=== PATIENT | female | born 1945 | race Caucasian/White ===

== ENCOUNTER 2017-12-18 22:40 | Emergency (ER) | payer OTHER ==
[~2017-12-18] VITALS: Ht 154.9 cm; Wt 72.6 kg
[2017-12-18] MEDS ORDERED: DILTIAZEM HCL 25 MG/5 ML VIAL IV ONE (23:30)
[2017-12-18 23:37] LABS: Basophils # (auto) 0.1 uL; Basophils % (auto) 0.5 % (0.0-2.0); Eosinophils # (auto) 0.2 uL; Eosinophils % (auto) 1.9 % (0.0-7.0); Hematocrit 44.1 % (36.0-46.0); Hemoglobin 15.1 g/dL (12.2-16.2); Lymphocytes # (auto) 3.2 uL; Lymphocytes % (auto) 35.1 % (10.0-50.0); Mean Corpuscular Hemoglobin 30.8 pg (28.0-32.0); Mean Corpuscular Hgb Conc. 34.1 g/dL (32.0-36.0); Mean Corpuscular Volume 90.2 fL (80.0-100.0); Monocytes # (auto) 0.6 uL; Monocytes % (auto) 6.4 % (0.0-12.0); Neutrophils # (auto) 5.2 uL; Neutrophils % (auto) 56.1 % (37.0-80.0); Platelet Count (auto) 276 10^3/uL (140-450); Red Blood Cells 4.89 10^6/uL (4.0-5.20); Red Cell Distribution Width 13.1 % (11.8-14.3); White Blood Cell 9.2 10^3/uL (4.4-10.8)
[2017-12-18 23:54] LABS: Alanine Aminotransferase 27 U/L (13-56); Albumin 3.9 g/dL (3.4-5.0); Anion Gap 11 (5-15); Aspartate Aminotransferase 17 U/L (15-37); BUN/Creatinine Ratio 16.9; Blood Urea Nitrogen 10 mg/dL (7-18); Calcium 8.6 mg/dL (8.5-10.1); Carbon Dioxide 20 mmol/L (21-32); Chloride 105 mmol/L (98-107); GFR African American 128 mL/min; GFR Non-African American 106 mL/min; Glucose 133 mg/dL (74-106); Potassium 3.1 mmol/L (3.5-5.1); Sodium 136 mmol/L (136-145)
[2017-12-18 23:59] LABS: Alkaline Phosphatase 76 U/L (45-117); Bilirubin, Total 0.5 mg/dL (0.2-1.0); Total Protein 7.5 g/dL (6.4-8.2)
[2017-12-19 00:02] LABS: INR 1.19 (0.9-1.15); Partial Thromboplastin Time 47.7 sec (22.64-33.71)
[2017-12-19] MEDS ORDERED: DIGOXIN 0.25 MG TAB PO ONE (00:45)
[2017-12-19] MEDS ORDERED: POTASSIUM CHL 20 Meq TABLET PO ONE (01:15)
[2017-12-19] MEDS ORDERED: DILTIAZEM HCL 25 MG/5 ML VIAL IV ONE (09:00)
[2017-12-19 09:05] VITALS: BP 157/83
== END 2017-12-19 12:12 ==
LOC: EDBD 22:40 → ER 22:40
DX: I48.91 Unspecified atrial fibrillation (principal); I50.31 Acute diastolic (congestive) heart failure; E87.6 Hypokalemia; D65 Disseminated intravascular coagulation [defibrination syndrome]; E11.9 Type 2 diabetes mellitus without complications; I11.0 Hypertensive heart disease with heart failure; E78.00 Pure hypercholesterolemia, unspecified; Z90.710 Acquired absence of both cervix and uterus; Z88.5 Allergy status to narcotic agent; Z88.2 Allergy status to sulfonamides
CPT/HCPCS: 36415; 71045; 80053; 84484; 85025; 85610; 85730; 93005; 96374; 96376

== ENCOUNTER 2020-07-21 09:00 | Emergency (ER) | payer OTHER ==
[~2020-07-21] VITALS: Ht 154.9 cm; Wt 70.3 kg
[2020-07-21] MEDS ORDERED: ASPirin 81 mg TAB PO ONE (09:15)
[2020-07-21 09:43] LABS: Basophils # (auto) 0 10 ^3/uL (0-0.2); Basophils % (auto) 0.4 % (0.0-2.0); Eosinophils # (auto) 0.1 10 ^3/uL (0-0.8); Eosinophils % (auto) 1.7 % (0.0-7.0); Hematocrit 45.5 % (36.0-46.0); Hemoglobin 15.1 g/dL (12.2-16.2); Lymphocytes # (auto) 2.5 10 ^3/uL (0.4-5.4); Lymphocytes % (auto) 30.1 % (10.0-50.0); Mean Corpuscular Hgb Conc. 33.3 g/dL (32.0-36.0); Mean Corpuscular Volume 90.1 fL (80.0-100.0); Monocytes # (auto) 0.6 10 ^3/uL (0-1.3); Monocytes % (auto) 7.1 % (0.0-12.0); Neutrophils % (auto) 60.7 % (37.0-80.0); Nucleated Red Blood Cells % 0.1 %; Platelet Count (auto) 270 10^3/uL (140-450); Red Blood Cells 5.05 10^6/uL (4.0-5.20); Red Cell Distribution Width 13.5 % (11.8-14.3); White Blood Cell 8.3 10^3/uL (4.4-10.8)
[2020-07-21 09:51] LABS: Urine Bacteria NONE SEEN /hpf (None Seen); Urine Blood Negative /uL (Negative); Urine Specific Gravity 1.004 (1.001-1.035); Urine WBC <1 /hpf (0 - 5)
[2020-07-21 09:55] LABS: Anion Gap 8 (5-15); Blood Urea Nitrogen 11 mg/dL (7-18); Carbon Dioxide 25 mmol/L (21-32); Chloride 106 mmol/L (98-107); Glucose 117 mg/dL (74-106); Magnesium 2.3 mg/dL (1.6-2.6); Potassium 3.2 mmol/L (3.5-5.1); Sodium 139 mmol/L (136-145)
[2020-07-21 10:01] LABS: Alanine Aminotransferase 32 U/L (13-56); Alkaline Phosphatase 77 U/L (45-117); Aspartate Aminotransferase 15 U/L (15-37); BUN/Creatinine Ratio 18.6; Bilirubin, Total 0.7 mg/dL (0.2-1.0); GFR African American 127 mL/min; GFR Non-African American 105 mL/min; Total Protein 7.8 g/dL (6.4-8.2)
[2020-07-21] MEDS ORDERED: POTASSIUM CHL 20 Meq TABLET PO ONE (12:00)
[2020-07-21 12:19] VITALS: BP 192/111
[2020-07-21] MEDS ORDERED: cloNIDine HCL 0.1 MG TAB PO ONE (12:30)
== END 2020-07-21 13:15 | disposition home or self-care (01) ==
LOC: EDBD 09:00 → ER 09:00
DX: R00.2 Palpitations (principal); I16.0 Hypertensive urgency; I10 Essential (primary) hypertension; E78.5 Hyperlipidemia, unspecified; E11.9 Type 2 diabetes mellitus without complications; Z90.710 Acquired absence of both cervix and uterus; Z88.6 Allergy status to analgesic agent; Z88.2 Allergy status to sulfonamides
CPT/HCPCS: 36415; 71045; 80053; 81001; 83735; 83880; 84484; 85025; 93005

== ENCOUNTER 2021-06-14 09:45 | Emergency (ER) | payer OTHER ==
[~2021-06-14] VITALS: Ht 154.9 cm; Wt 70.3 kg
[2021-06-14 09:45] VITALS: BP 158/67
[2021-06-14 12:00] LABS: Basophils # (auto) 0.1 10 ^3/uL (0-0.2); Basophils % (auto) 1.5 % (0.0-2.0); Eosinophils # (auto) 0.1 10 ^3/uL (0-0.8); Eosinophils % (auto) 0.7 % (0.0-7.0); Hematocrit 43.2 % (36.0-46.0); Hemoglobin 15.1 g/dL (12.2-16.2); Lymphocytes # (auto) 2.2 10 ^3/uL (0.4-5.4); Lymphocytes % (auto) 22.8 % (10.0-50.0); Mean Corpuscular Hemoglobin 31.2 pg (28.0-32.0); Mean Corpuscular Volume 89.2 fL (80.0-100.0); Monocytes # (auto) 0.7 10 ^3/uL (0-1.3); Monocytes % (auto) 7.4 % (0.0-12.0); Neutrophils # (auto) 6.5 10 ^3/uL (1.6-8.6); Neutrophils % (auto) 67.6 % (37.0-80.0); Red Blood Cells 4.85 10^6/uL (4.0-5.20); Red Cell Distribution Width 12.8 % (11.8-14.3); White Blood Cell 9.7 10^3/uL (4.4-10.8)
[2021-06-14 12:05] LABS: INR 1.12 (0.9-1.15); Partial Thromboplastin Time 39.1 sec (23.6-33.0)
[2021-06-14 12:07] LABS: Calcium 9.2 mg/dL (8.5-10.1); Potassium 3.6 mmol/L (3.5-5.1)
[2021-06-14 12:13] LABS: BUN/Creatinine Ratio 16.9; Bilirubin, Total 0.4 mg/dL (0.2-1.0); Total Protein 8.3 g/dL (6.4-8.2)
== END 2021-06-14 14:49 | disposition left against medical advice (07) ==
LOC: ER 09:45 → EDBD 09:45 → ER 14:49
DX: L03.115 Cellulitis of right lower limb (principal); M79.10 Myalgia, unspecified site; R00.2 Palpitations; I11.0 Hypertensive heart disease with heart failure; I50.9 Heart failure, unspecified; I48.91 Unspecified atrial fibrillation; E78.5 Hyperlipidemia, unspecified; Z90.710 Acquired absence of both cervix and uterus; Z88.2 Allergy status to sulfonamides; Z88.5 Allergy status to narcotic agent
CPT/HCPCS: 36415; 70450; 71045; 72192; 73700; 80053; 83880; 84484; 85025; 85610; 85730; 93005

== ENCOUNTER 2023-07-17 08:22 | Inpatient (IN) | payer OTHER ==
[~2023-07-17] VITALS: Ht 162.6 cm; Wt 72.5 kg
[2023-07-17 08:50] LABS: Basophils # (auto) 0.1 10 ^3/uL (0-0.2); Basophils % (auto) 0.8 % (0.0-2.0); Eosinophils # (auto) 0.1 10 ^3/uL (0-0.8); Eosinophils % (auto) 0.9 % (0.0-7.0); Hematocrit 38.8 % (36.0-46.0); Hemoglobin 13.2 g/dL (12.2-16.2); Lymphocytes # (auto) 1.4 10 ^3/uL (0.4-5.4); Lymphocytes % (auto) 14.1 % (10.0-50.0); Mean Corpuscular Volume 88.3 fL (80.0-100.0); Monocytes # (auto) 0.5 10 ^3/uL (0-1.3); Monocytes % (auto) 5.4 % (0.0-12.0); Neutrophils # (auto) 7.8 10 ^3/uL (1.6-8.6); Neutrophils % (auto) 78.8 % (37.0-80.0); Nucleated Red Blood Cells % 0.1 %; Red Cell Distribution Width 14.2 % (11.8-14.3); White Blood Cell 9.9 10^3/uL (4.4-10.8)
[2023-07-17 09:16] LABS: Alanine Aminotransferase 19 U/L (7-40); Albumin 4.5 g/dL (3.2-4.8); Alkaline Phosphatase 65 U/L (46-116); Anion Gap 7.6 (5-15); Aspartate Aminotransferase 15 U/L (13-40); BUN/Creatinine Ratio 15.2 (10.0-20.0); Blood Urea Nitrogen 10 mg/dL (9-23); Carbon Dioxide 22.4 mmol/L (20-30); Chloride 106 mmol/L (98-107); Glucose 139 mg/dL (74-106); Potassium 3.5 mmol/L (3.5-5.1); Sodium 136 mmol/L (136-145); Total Protein 7.3 g/dL (5.7-8.2)
[2023-07-17 11:02] LABS: Urine WBC None Seen /hpf (0 - 5)
[2023-07-17 11:22] LABS: Urine Bacteria NONE SEEN /hpf (None Seen); Urine Blood Negative /uL (Negative); Urine Clarity Clear (Clear); Urine Color Colorless (Yellow); Urine Protein, UAD Negative (Negative); Urine Specific Gravity 1.008 (1.001-1.035); Urine Urobilinogen Normal (Negative); Urine pH 6.5 (5.0-8.0)
[2023-07-17 11:30] VITALS: PULSE 63; RESP 16; O2SAT 94
[2023-07-17] MEDS ORDERED: FUROSEMIDE 20 MG/2 ML VIAL IV ONE (11:30)
[2023-07-17] MEDS ORDERED: MORPHINE SULFATE INJ 2 MG/ml SYRG IV PRN (14:00)
[2023-07-17] MEDS ORDERED: NITROGLYCERIN 0.4 MG SL TAB SL PRN (14:00)
[2023-07-17] MEDS ORDERED: ACETAMINOPHEN 325 MG TAB PO PRN (14:00)
[2023-07-17] MEDS ORDERED: HYDR25TA87 PO (14:31)
[2023-07-17] MEDS ORDERED: BISO5TAB44 PO (14:31)
[2023-07-17] MEDS ORDERED: DABI150C5 PO (14:31)
[2023-07-17] MEDS ORDERED: LOSA50TA46 PO (14:31)
[2023-07-17] MEDS ORDERED: DILT-29 PO (14:31)
[2023-07-17] MEDS ORDERED: FURO20TA3 PO ×2 (14:31→22:17)
[2023-07-17] MEDS ORDERED: PRAV20TA3 PO (14:32)
[2023-07-17 14:39] LABS: Triglycerides 139 mg/dL (< 150)
[2023-07-17 14:40] LABS: LDL Cholesterol 79 mg/dL (< 100)
[2023-07-17 14:41] LABS: Cholesterol 135 mg/dL (< 200); HDL Cholesterol 43 mg/dL (40-59)
[2023-07-17 19:25] VITALS: PULSE 70; RESP 17; O2SAT 98
[2023-07-17 22:00] VITALS: BP 177/65; PULSE 65; RESP 18; TEMP 98.2
[2023-07-17] MEDS: hydrALAZINE HCL 25 MG TAB PO SCH (22:00)
[2023-07-17] MEDS: LOSARTAN POTASSIUM 50 MG TAB PO SCH (22:01)
[2023-07-17] MEDS: DABIGATRAN 75 MG CAP PO SCH (22:32)
[2023-07-18] VITALS (7 sets, daily range): BP systolic 134–162; BP diastolic 55–70; PULSE 63–68; RESP 14–19; TEMP 97.6–98.1; O2SAT 91–98
[2023-07-18] MEDS ORDERED: FURO20TA3 PO (01:14)
[2023-07-18] MEDS ORDERED: HYDR-4297 PO (01:17)
[2023-07-18 05:55] LABS: Basophils # (auto) 0.1 10 ^3/uL (0-0.2); Eosinophils # (auto) 0.1 10 ^3/uL (0-0.8); Eosinophils % (auto) 0.9 % (0.0-7.0); Hematocrit 37.1 % (36.0-46.0); Hemoglobin 12.5 g/dL (12.2-16.2); Lymphocytes # (auto) 1.9 10 ^3/uL (0.4-5.4); Lymphocytes % (auto) 16.7 % (10.0-50.0); Mean Corpuscular Hgb Conc. 33.8 g/dL (32.0-36.0); Monocytes # (auto) 0.9 10 ^3/uL (0-1.3); Monocytes % (auto) 8.1 % (0.0-12.0); Neutrophils # (auto) 8.1 10 ^3/uL (1.6-8.6); Neutrophils % (auto) 73.3 % (37.0-80.0); Red Blood Cells 4.17 10^6/uL (4.0-5.20); Red Cell Distribution Width 13.9 % (11.8-14.3); White Blood Cell 11.1 10^3/uL (4.4-10.8)
[2023-07-18 06:17] LABS: Alanine Aminotransferase 10 U/L (7-40); Albumin 4.2 g/dL (3.2-4.8); Alkaline Phosphatase 65 U/L (46-116); Anion Gap 8.4 (5-15); Aspartate Aminotransferase 14 U/L (13-40); BUN/Creatinine Ratio 14.5 (10.0-20.0); Bilirubin, Total 1.5 mg/dL (0.2-1.0); Blood Urea Nitrogen 9 mg/dL (9-23); Calcium 9.2 mg/dL (8.5-10.1); Carbon Dioxide 23.6 mmol/L (20-30); Chloride 108 mmol/L (98-107); Glucose 118 mg/dL (74-106); Potassium 3.6 mmol/L (3.5-5.1); Sodium 140 mmol/L (136-145); Total Protein 6.9 g/dL (5.7-8.2)
[2023-07-18 07:43] LABS: COVID19 ANTIGEN SOFIA FIA NEGATIVE (NEGATIVE)
[2023-07-18] MEDS: DABIGATRAN 75 MG CAP PO SCH ×2 (08:20→21:39)
[2023-07-18] MEDS: LOSARTAN POTASSIUM 50 MG TAB PO SCH ×2 (08:21→21:39)
[2023-07-18] MEDS: dilTIAZem 120MG ER CAP PO SCH (08:21)
[2023-07-18] MEDS: hydrALAZINE HCL 25 MG TAB PO SCH ×2 (08:21→21:40)
[2023-07-18] MEDS: BISOPROLOL 5 MG PO SCH (08:25)
[2023-07-18] MEDS ORDERED: FUROSEMIDE 20 MG/2 ML VIAL IV SCH (10:00)
[2023-07-18] MEDS: FUROSEMIDE 20 MG/2 ML VIAL IV SCH (17:29)
[2023-07-18] MEDS: PRAVASTATIN SODIUM 20 MG TAB PO SCH (21:39)
[2023-07-19] VITALS (7 sets, daily range): BP systolic 135–158; BP diastolic 55–65; PULSE 62–82; RESP 14–20; TEMP 97.9–98.3; O2SAT 93–96
[2023-07-19] MEDS: FUROSEMIDE 20 MG/2 ML VIAL IV SCH ×2 (05:08→17:34)
[2023-07-19 06:12] LABS: Chloride 108 mmol/L (98-107); Potassium 3.2 mmol/L (3.5-5.1); Sodium 139 mmol/L (136-145)
[2023-07-19 06:13] LABS: Anion Gap 6 (5-15); Calcium 8.9 mg/dL (8.7-10.4); Carbon Dioxide 25 mmol/L (20-30)
[2023-07-19 06:18] LABS: BUN/Creatinine Ratio 17.5 (10.0-20.0); Blood Urea Nitrogen 10 mg/dL (9-23); Glucose 113 mg/dL (74-106)
[2023-07-19] MEDS: LOSARTAN POTASSIUM 50 MG TAB PO SCH ×2 (08:23→21:43)
[2023-07-19] MEDS: dilTIAZem 120MG ER CAP PO SCH (08:24)
[2023-07-19] MEDS: DABIGATRAN 75 MG CAP PO SCH ×2 (08:24→21:44)
[2023-07-19] MEDS: hydrALAZINE HCL 25 MG TAB PO SCH ×2 (08:24→21:44)
[2023-07-19] MEDS: BISOPROLOL 5 MG PO SCH (08:28)
[2023-07-19] MEDS ORDERED: POTASSIUM CHL 20 Meq TABLET PO ONE (13:45)
[2023-07-19] MEDS: PRAVASTATIN SODIUM 20 MG TAB PO SCH (21:44)
[2023-07-20 05:00] VITALS: BP 144/57; PULSE 65; RESP 14; TEMP 98.5; O2SAT 97
[2023-07-20] MEDS: FUROSEMIDE 20 MG/2 ML VIAL IV SCH (05:45)
[2023-07-20 07:30] VITALS: BP 151/62; PULSE 73; TEMP 36.9
[2023-07-20 08:00] VITALS: BP 148/78; PULSE 80; RESP 18; TEMP 98.5; O2SAT 93
[2023-07-20] MEDS: DABIGATRAN 75 MG CAP PO SCH (09:51)
[2023-07-20] MEDS: dilTIAZem 120MG ER CAP PO SCH (09:51)
[2023-07-20] MEDS: LOSARTAN POTASSIUM 50 MG TAB PO SCH (09:52)
[2023-07-20] MEDS: BISOPROLOL 5 MG PO SCH (09:52)
[2023-07-20] MEDS: hydrALAZINE HCL 25 MG TAB PO SCH (09:52)
[2023-07-20 12:00] VITALS: BP 165/67; PULSE 64; RESP 18; TEMP 97.9; O2SAT 97
[2023-07-20] MEDS ORDERED: hydrALAZINE HCL 20 MG/ML VL IV ONE (12:45)
[2023-07-20 13:33] VITALS: BP 148/78; PULSE 80; TEMP 36.6
== END 2023-07-20 15:06 | disposition home or self-care (01) | DRG 291 ==
LOC: ER 08:22 → EDBD 08:22 → TELE 13:59 → TELE-WESTW 21:25
PROVIDERS: ADMIT Nurse Practitioner Family; ATTEND Internal Medicine
DX: I11.0 Hypertensive heart disease with heart failure (principal); I50.33 Acute on chronic diastolic (congestive) heart failure; J96.00 Acute respiratory failure, unspecified whether with hypoxia or hypercapnia; D68.69 Other thrombophilia; I48.91 Unspecified atrial fibrillation; E66.01 Morbid (severe) obesity due to excess calories; E78.5 Hyperlipidemia, unspecified; Z20.822 Contact with and (suspected) exposure to COVID-19; I08.0 Rheumatic disorders of both mitral and aortic valves; I70.0 Atherosclerosis of aorta; Z79.01 Long term (current) use of anticoagulants; Z82.49 Family history of ischemic heart disease and other diseases of the circulatory system; Z90.710 Acquired absence of both cervix and uterus; Z88.2 Allergy status to sulfonamides; Z88.5 Allergy status to narcotic agent; Z91.013 Allergy to seafood; Z68.27 Body mass index [BMI] 27.0-27.9, adult
CPT/HCPCS: 36415; 71045; 80048; 80053; 80061; 81001; 83880; 84443; 84484; 85025; 85379; 87426; 93005; 93306; 96374; 99291; G0378